=== PATIENT | male | born 1995 | race Caucasian/White ===

== ENCOUNTER 2018-04-05 17:00 | Emergency (ER) | payer OTHER ==
[2018-04-05 17:28] VITALS: BP 134/76
[2018-04-05] MEDS ORDERED: Lidocaine 1% MPF* 2 ML VIAL INJ ONE (18:05)
--- NOTE | 2018-04-05 18:05 | UC ---
UC General HPI - HPI Summary HPI Summary: cut R finger on a tuna can lid. no limited rom or FB sensation. 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 LACERATION Time Seen by Provider: 04/05/18 17:59 Hx Obtained From: Patient Onset/Duration: Sudden Onset Pain Intensity: 0 Aggravating: nothing Alleviating: nothing - Allergy/Home Medications Allergies/Adverse Reactions: Allergies Allergy/AdvReac Type Severity Reaction Status Date / Time cortisone Allergy Intermediate topical Verified 04/05/18 17:28 cortisone/rash Home Medications: Home Medications Escitalopram (NF) [Lexapro 10 mg (NF)] 10 mg PO DAILY 04/05/18 [History Confirmed 04/05/18] Loratadine [Claritin 10 MG CAP] 10 mg PO DAILY 04/05/18 [History Confirmed 04/05] PMH/Surg Hx/FS Hx/Imm Hx Psychological History: Anxiety - Surgical History Surgical History: None Surgery Procedure, Year, and Place: WISDOM TEETH EXTRACTION 2012 - Family History Known Family History: Positive: None - Social History Occupation: Employed Full-time Lives: With Family Alcohol Use: Rare Substance Use Type: None Smoking Status (MU): Current Some Day Smoker - Immunization History Most Recent Tetanus Shot: 2017 Vaccination Up to Date: Yes Review of Systems Constitutional: Negative Skin: Other - cut R index finger Eyes: Negative ENT: Negative Respiratory: Negative Cardiovascular: Negative Gastrointestinal: Negative Genitourinary: Negative Motor: Negative Neurovascular: Negative Musculoskeletal: Negative Neurological: Negative Psychological: Negative Is Patient Immunocompromised?: No All Other Systems Reviewed And Are Negative: Yes Physical Exam Triage Information Reviewed: Yes Appearance: Well-Appearing Vital Signs: Initial Vital Signs Temp 98.1 F 04/05/18 17:23 Pulse 83 04/05/18 17:23 Resp 16 04/05/18 17:23 BP 134/76 04/05/18 17:23 Pulse Ox 98 04/05/18 17:23 Vital Signs Reviewed: Yes Eyes: Positive: Conjunctiva Clear ENT: Positive: Normal ENT inspection Neck: Positive: Supple, Nontender, No Lymphadenopathy Respiratory: Positive: Lungs clear, Normal breath sounds Cardiovascular: Positive: RRR, No Murmur Abdomen Description: Positive: Nontender, No Organomegaly, Soft Bowel Sounds: Positive: Present Musculoskeletal: Positive: ROM Intact Neurological: Positive: Alert Psychological: Positive: Age Appropriate Behavior Skin Exam: Normal, Other - 1cm lac R index dip joint. fat seen, minimal bleeding. s/v/m is intact. Procedures - Procedure Summary Procedure Summary: site prep betadine. local with 1% lidocaine and 30g needle. explored, no fb or ligament/tendon injury. irrigated sterile NaCL. prep betadine and draped. closed 5-0 nylon and 1 horizontal mattress stitch. sterile technique used. pt tolerated well. Course/Dx - Differential Dx - Multi-Symptom Provider Diagnoses: 1cm laceration R index finger Discharge - Sign-Out/Discharge Documenting (check all that apply): Discharge/Admit/Transfer - Discharge Plan Condition: Stable Disposition: HOME Patient Education Materials: Care For Your Stitches (DC) Referrals: Stew Nixon DO [Primary Care Provider] - Additional Instructions: HAVE STITCHES REMOVED IN 7-10 DAYS - Billing Disposition and Condition Condition: STABLE Disposition: HOME
[2018-04-05] MEDS ORDERED: Lidocaine 1%* 5 ML VIAL ONE (18:08)
== END 2018-04-05 18:33 | disposition home or self-care (01) ==
LOC: UCCORT 17:00
DX: S61.210A Laceration without foreign body of right index finger without damage to nail, initial encounter (principal); W26.8XXA Contact with other sharp object(s), not elsewhere classified, initial encounter; Y92.9 Unspecified place or not applicable; Z88.8 Allergy status to other drugs, medicaments and biological substances; F41.9 Anxiety disorder, unspecified; F17.210 Nicotine dependence, cigarettes, uncomplicated
CPT/HCPCS: 12001; 99201; G0463